=== PATIENT | female | born 1995 | race Caucasian/White ===

== ENCOUNTER 2019-12-13 14:03 | Emergency (ER) | payer MEDICAID, SELFPAY ==
[2019-12-13 14:07] VITALS: BP 136/92; PULSE 131; RESP 18; TEMP 36.7; O2SAT 99
--- NOTE | 2019-12-13 14:31 | W.ED.GENAD ---
Discharge Plan Disposition Patient Disposition: HOME Condition: Stable Discharge Details Chief Complaint: GenMedical Clinical Impression: Acute breast pain, Abnormal menstrual periods Primary Care Provider: April,Local ED Provider: Bruce Porter Home Meds and New Rx's Prescriptions: Continued methylphenidate HCl [Ritalin] 20 mg Tablet 20 mg PO BID RF: 0 buprenorphine-naloxone [Suboxone] 2-0.5 mg Film 2 film BUCCAL DAILY RF: 0 Discharge Instructions Instructions: Breast Self Exam for Women (ED) Additional Instructions: Please follow-up with women's wellness. Additional outpatient diagnostic testing is indicated. Please contact your primary care physician to arrange follow-up. Return to the ER for any worsening or new concerning symptoms. Referrals: [facility] [Provider Group] Discharge Data Discharge Date/Time-TO BE ENTERED AT DEPARTURE: 12/13/19 15:05 Medical Decision Making 24-year-old female on Suboxone and Ritalin here with bilateral breast pain over the past 1 to 2 months with firm tender breast mass noted on self-exam as well as irregular, infrequent menstruation. Patient is quite anxious. Breast exam was performed at the request of patient with female nurse Lashaun present. Patient does have some well circumscribed firm nodules that are tender. No overlying inflammatory changes. No current discharge from nipple although patient notes that she has had some. Urine test is negative. I called and spoke with Dr. Manuel, on-call shuttle preparation supervisor. I discussed ED presentation. She will see the patient in follow-up. No additional diagnostics requested at this time. Patient understands importance of timely follow-up with gynecology. I encouraged to return for any worsening or new concerning symptoms. Lab Data Lab results reviewed: Yes I reviewed the patient's lab results. Lab results narrative: Urine negative HPI General Mode of arrival: ambulatory. Date/Time Provider Initiated Documentation: 12/13/19 14:31. Limitations to Documentation: no limitations. Information obtained by: patient. HPI Narrative: 24-year-old female here with chief complaint of breast pain. Patient notes breasts are sore bilaterally over the past 1 to 2 months. Pain waxes and wanes and can be severe at times. Pain worse right breast compared to left. She notes she has associated firm tender masses bilateral breast. She also states she has had some discharge from her right nipple when she attempts to express it. Discharge is thick white. Patient denies rash. No fevers. Patient also states irregular menses for some time. She states that she had fairly regular periods when she was 19 and 20 and then over the past few years periods have been irregular and infrequent. She does not recall last period. No vaginal discharge. No abdominal pain. Of note, patient states she has not been seen by a shuttle preparation supervisor. She is sexually active. She does not use control. Related Data Home Medications Medication Instructions Recorded Confirmed buprenorphine-naloxone [Suboxone] 2 film BUCCAL DAILY 12/13/19 12/13/19 methylphenidate HCl [Ritalin] 20 mg PO BID 12/13/19 12/13/19 Allergies Allergy/AdvReac Type Severity Reaction Status Date / Time Penicillins Allergy Unknown as child Unverified 12/13/19 14:13 sulfamethoxazole Allergy Hives Unverified 12/13/19 14:14 [From Bactrim] trimethoprim [From Bactrim] Allergy Hives Unverified 12/13/19 14:14 General Stated Complaint: GenMedical MIS: 4 Review of Systems All systems reviewed & are unremarkable except as noted in HPI and below Gastrointestinal Gastrointestinal: Denies abdominal pain Genitourinary Genitourinary: Reports as per HPI and Denies pelvic pain PFS Social History Smoking/Tobacco Use Status: Current every day Tobacco Type: cigarettes Drug use: Daily Substance use type: marijuana Details: On Suboxone Do you feel safe at home: Yes Do you feel safe in your relationship?: Yes Exam Const General: healthy appearing and anxious Orientation: alert and awake HENMT Mouth: moist mucous membranes Eyes Sclera: normal sclerae Neck Neck: trachea midline and supple Chest Breast inspection: normal inspection of the axillae, abnormal inspection of the breast (rt breast nodule 1:00, tender. Left breast diffusely tender.) and Other (Breast exam was performed with female nurse joshua Wilks present) Breast palpation: no axillary lymphadenopathy Resp Auscultation: clear to auscultation bilaterally, no rales, no rhonchi and no wheezes Cardio Rhythm: regular rhythm GI Palpation: soft, not firm, no guarding, no masses, not rigid and nontender Skin General skin exam: no rashes or lesions noted Neuro General: patient alert, patient awake and tone normal Extrem General: no edema Psych Appearance: grossly normal Mental Status: mental status grossly normal Course Vital Signs Vital signs: Vital Signs Temperature 36.7 C 12/13/19 14:07 Pulse 131 H 12/13/19 14:07 Respiratory Rate 18 12/13/19 14:07 Blood Pressure 136/92 H 12/13/19 14:07 Pulse Oximetry 99 12/13/19 14:07 Temperature 36.7 C 12/13/19 14:07 Temperature Source Temporal Artery Scan 12/13/19 14:07 Pulse 131 H 12/13/19 14:07 Respiratory Rate 18 12/13/19 14:07 Respiratory Effort Non-Labored 12/13/19 14:11 Blood Pressure 136/92 H 12/13/19 14:07 Blood Pressure Position Sitting 12/13/19 14:07 Pulse Oximetry 99 12/13/19 14:07 Oxygen Delivery Method Room Air 12/13/19 14:07 Oxygen Flow Rate 0 12/13/19 14:07 Pain Level 5 12/13/19 14:07 Lab/Test Results Lab/Test Results: POC- Test(urine) Negative
[2019-12-13 19:03] VITALS: RESP 16
== END 2019-12-13 15:05 | disposition home or self-care (01) ==
LOC: ER 14:49
PROVIDERS: Emergency Provider Student in an Organized Health Care Education/Training Program
DX: R22.0 Localized swelling, mass and lump, head (principal); R22.31 Localized swelling, mass and lump, right upper limb; R22.32 Localized swelling, mass and lump, left upper limb
CPT/HCPCS: 81025; 99283

== ENCOUNTER 2019-12-15 14:44 | Emergency (ER) | payer MEDICAID, SELFPAY ==
[2019-12-15 14:50] VITALS: BP 117/70; PULSE 91; RESP 18; TEMP 36.7; O2SAT 96
--- NOTE | 2019-12-15 15:30 | ED.GENADUL_ITS ---
Discharge Plan Disposition Patient Disposition: HOME Condition: Stable Discharge Details Chief Complaint: GenMedical Clinical Impression: Facial swelling, Bilateral hand swelling Primary Care Provider: April,Local ED Provider: Daysi Max Home Meds and New Rx's Prescriptions: New prednisone 20 mg tablet 60 mg PO DAILY 5 Days Qty: 15 RF: 0 No Action methylphenidate HCl [Ritalin] 20 mg Tablet 20 mg PO BID RF: 0 buprenorphine-naloxone [Suboxone] 2-0.5 mg Film 2 film BUCCAL DAILY RF: 0 Discharge Instructions Instructions: Angioedema (ED) Additional Instructions: Follow up with PCP or [facility] in 3-5 days. Return to ED for any worsening or concerns. Take Benadryl 12 tablets every 6-8 hours as needed for swelling and itching. Take pepcid over the counter daily x 5 days. Take Prednisone as prescribed. Discharge Data Discharge Date/Time-TO BE ENTERED AT DEPARTURE: 12/15/19 16:13 Medical Decision Making 23-year-old female presents to the ER with bilateral hand and face swelling which began yesterday. She denies any pain or joint pain. She does take Suboxone and methylphenidate on a daily basis. No redness no new medications or exposure to anything. She denies any pruritus. Swelling to the face has since decreased and hand swelling has decreased she reports tingling and gaom-edj-rbymgnq type sensation to her hands. Denies any rash. She has no wheezing no trouble breathing no trouble swallowing. She did not take any medications prior to arrival. At this time swelling seems to be decreasing will order oral Benadryl, Pepcid and 60 mg of prednisone. Plan is to discharge patient with 5 days of prednisone and instructions to take [id number] Pepcid and Benadryl as needed for swelling. HPI General Mode of arrival: ambulatory . Date/Time Provider Initiated Documentation: 12/15/19 14:49 . Limitations to Documentation: no limitations . Information obtained by: patient . HPI Narrative: 23-year-old female presents to the ER with bilateral hand and face swelling which began yesterday. She denies any pain or joint pain. She does take Suboxone and methylphenidate on a daily basis. No redness no new medications or exposure to anything. She denies any pruritus. Swelling to the face has since decreased and hand swelling has decreased she reports tingling and vyeq-mla-wpsedpf type sensation to her hands. Denies any rash. She has no wheezing no trouble breathing no trouble swallowing. She did not take any medications prior to arrival. Related Data Home Medications Medication Instructions Recorded Confirmed buprenorphine-naloxone [Suboxone] 2 film BUCCAL DAILY 12/13/19 12/15/19 methylphenidate HCl [Ritalin] 20 mg PO BID 12/13/19 12/15/19 prednisone 60 mg PO DAILY 5 Days #15 tab 12/15/19 Previous Rx's Medication Instructions Recorded prednisone 60 mg PO DAILY 5 Days #15 tab 12/15/19 Allergies Allergy/AdvReac Type Severity Reaction Status Date / Time Penicillins Allergy Unknown as child Unverified 12/15/19 14:55 sulfamethoxazole Allergy Hives Unverified 12/15/19 14:55 [From Bactrim] trimethoprim [From Bactrim] Allergy Hives Unverified 12/15/19 14:55 General Stated Complaint: GenMedical MIS: 3 Review of Systems Narrative: Constitutional: Negative for weight loss, alert and oriented, well groomed, normal body habitus, appears comfortable. HEENT: Denies trauma, headaches, blurry vision, nasal discharge, sore throat, trouble swallowing. Chest: Denies chest pain, palpitations, irregular rhythm, hypertension. Respiratory: Denies Shortness of breath, cough, hemoptysis. GI: Denies abdominal pain, nausea, vomiting, diarrhea, constipation. : Denies dysuria, hematuria, flank pain, rectal bleeding. Neuro: Denies dizziness, blurry vision, weakness, syncope, headache or facial numbness. Hematologic: Denies easy bruising, intolerance to heat or cold, hair loss. [facility] Social History Smoking/Tobacco Use Status: Current every day Tobacco Type: cigarettes Alcohol Intake: current Alcohol Intake frequency: holidays/special occasions only Alcohol type: hard liquor Drug use: Daily Substance use type: marijuana Details: On Suboxone Do you feel safe at home: Yes Do you feel safe in your relationship?: Yes Exam Narrative Exam Narrative: Constitutional: Alert and oriented x3. Appears stated age. Normal body habitus. Head: Normocephalic, no trauma. Mild facial swelling noted. Eyes: Pupils PERRLA, Red reflex noted, EOM's intact. Eyelids symmetrical without lesions, discharge, or swelling. ENT: Bilateral TM's WNL, External ear normal to inspection, no mastoid TTP, swelling, or erythema, Nasal turbinates WNL, no nasal discharge. Normal dentition, Posterior pharynx WNL, no exudate. Chest: RRR, Normal S1, S2, distal pulses intact. Resp: Lungs clear to auscultation bilaterally, no wheezes, rales, or rhonchi. Musculoskeletal: Normal gait, 5/5 strength to all four extremities. Skin: No suspicious rashes or lesions. Capillary refill less than 2 sec. Neurologic: Cranial nerves II-XII intact. Alert and oriented x 3. DTR's intact. Hematologic/Lymphatic: No ecchymosis, no lymphadenopathy. Course Vital Signs Vital signs: Vital Signs Temperature 36.7 C 12/15/19 14:50 Pulse 91 H 12/15/19 14:50 Respiratory Rate 18 12/15/19 14:50 Blood Pressure 117/70 12/15/19 14:50 Pulse Oximetry 96 12/15/19 14:50 Temperature 36.7 C 12/15/19 14:50 Temperature Source Temporal Artery Scan 12/15/19 14:50 Pulse 91 H 12/15/19 14:50 Respiratory Rate 18 12/15/19 14:50 Respiratory Effort Non-Labored 12/15/19 14:56 Blood Pressure 117/70 12/15/19 14:50 Pulse Oximetry 96 12/15/19 14:50 Oxygen Delivery Method Room Air 12/15/19 14:50 Oxygen Flow Rate 0 12/15/19 14:50
[2019-12-15] MEDS: Famotidine 20 MG TAB 40 MG PO (15:42)
[2019-12-15] MEDS: diphenhydrAMINE 25 MG CAP PO (15:42)
[2019-12-15] MEDS: predniSONE 20 MG TAB 60 MG PO (15:42)
== END 2019-12-15 16:13 | disposition home or self-care (01) ==
PROVIDERS: Emergency Provider Registered Nurse Emergency
DX: R22.0 Localized swelling, mass and lump, head (principal); M79.89 Other specified soft tissue disorders
CPT/HCPCS: 99283; J7512

== ENCOUNTER 2019-12-22 16:48 | Emergency (ER) | payer MEDICAID, SELFPAY ==
[2019-12-22 16:56] VITALS: BP 108/58; PULSE 75; RESP 16; TEMP 36.7; O2SAT 98
--- NOTE | 2019-12-22 17:03 | ED.GENADUL_ITS ---
Discharge Plan Disposition Patient Disposition: HOME Condition: Stable Discharge Details Clinical Impression: Otitis externa, Acute effusion of right ear Primary Care Provider: April,Local ED Provider: Mee Aj Home Meds and New Rx's Prescriptions: New azithromycin [Zithromax Z-Iggy] 250 mg tablet See Rx Instructions .ROUTE .COMPLEX Qty: 6 RF: 0 Cipro HC 0.2-1 % drops,suspension 3 drp OT BID 7 Days Qty: 10 RF: 0 Continued ibuprofen 600 mg tablet 600 mg PO Q6H PRN (Reason: pain) Qty: 30 RF: 2 methylphenidate HCl [Ritalin] 20 mg Tablet 20 mg PO BID RF: 0 buprenorphine-naloxone [Suboxone] 2-0.5 mg Film 2 film BUCCAL DAILY RF: 0 Discharge Instructions Instructions: Otitis Externa (ED), Ear Infection (ED) Additional Instructions: Drink plenty of fluids and get plenty of rest. Alternate tylenol and motrin as needed and directed for pain. Use the eardrops as directed until finished. If you have no relief of symptoms in the next 2 days, start the oral antibiotics. Follow-up with your primary care doctor in 1 week. Follow-up with the ear nose and throat doctor if your symptoms do not improve or worsen over the next few weeks. Return to the emergency department with any worsening or new concerning symptoms. Referrals: Flip Cohen MD [ [facility]] - Discharge Data Discharge Date/Time-TO BE ENTERED AT DEPARTURE: 12/22/19 17:37 Discharge Physician: Mee Aj Medical Decision Making 24-year-old female presents with right ear pain and clear drainage for the past few days. Vitals within normal limits. She appears nontoxic. Pain with pulling on right ear and when introducing otoscope into right ear canal which noted minimal edema and erythema. There is a small piece of wax obstructing full view of TM.. TM appears dull without significant erythema. Suspect most likely otitis externa. Will treat with Cipro HC otic drops. We will also give a prescription for oral Zithromax if symptoms do not improve or worsen over the next 2 days. Urine test negative last week. On suboxone and ritalin. Advised to follow up with the primary care doctor for re-evaluation and for referral to ENT if symptoms do not improve or worsen. Usual and customary return precautions given prior to discharge. Medical Records Medical records reviewed: Yes I reviewed the patient's medical records. HPI General Mode of arrival: ambulatory . Date/Time Provider Initiated Documentation: 12/22/19 16:48 . Limitations to Documentation: no limitations . Information obtained by: patient . HPI Narrative: Patient is a 24-year-old female who presents with right ear pain and clear drainage over the past few days. She states the pain feels like it is deep within her ear but also hurts with pulling on her ear. She denies any fever, sore throat, cough, neck pain or headache. She denies any recent swimming. Related Data Home Medications Medication Instructions Recorded Confirmed buprenorphine-naloxone [Suboxone] 2 film BUCCAL DAILY 12/13/19 12/22/19 methylphenidate HCl [Ritalin] 20 mg PO BID 12/13/19 12/22/19 ibuprofen 600 mg tablet 600 mg PO Q6H PRN #30 tab 12/17/19 12/22/19 azithromycin [Zithromax Z-Iggy] See Rx Instructions .ROUTE 12/22/19 .COMPLEX #6 tab ciprofloxacin-hydrocortisone 3 drp OT BID 7 Days #10 ml 12/22/19 [Cipro HC] Previous Rx's Medication Instructions Recorded ibuprofen 600 mg tablet 600 mg PO Q6H PRN #30 tab 12/17/19 azithromycin [Zithromax Z-Iggy] See Rx Instructions .ROUTE 12/22/19 .COMPLEX #6 tab ciprofloxacin-hydrocortisone 3 drp OT BID 7 Days #10 ml 12/22/19 [Cipro HC] Allergies Allergy/AdvReac Type Severity Reaction Status Date / Time Penicillins Allergy Unknown as child Unverified 12/22/19 16:59 sulfamethoxazole Allergy Hives Unverified 12/22/19 16:59 [From Bactrim] trimethoprim [From Bactrim] Allergy Hives Unverified 12/22/19 16:59 General Stated Complaint: EarProblem MIS: 4 Review of Systems All systems reviewed & are unremarkable except as noted in HPI and below Constitutional Constitutional: Reports as per HPI, Denies chills and Denies fever(s) Eyes Eyes: Denies blurry vision ENT Ears, Nose, Mouth, and Throat: Denies dizziness, Reports ear discharge, Reports otalgia, Denies sore throat and Denies throat swelling Cardiovascular Cardiovascular: Denies chest pain and Denies dyspnea Respiratory Respiratory: Denies cough and Denies dyspnea Gastrointestinal Gastrointestinal: Denies abdominal pain, Denies diarrhea and Denies vomiting Genitourinary Genitourinary: Denies hematuria and Denies dysuria Musculoskeletal Musculoskeletal: Denies back pain and Denies numbness Integumentary/Breasts Skin/Breast: Denies lesions and Denies rash Neurologic Neurologic: Denies dizziness, Denies localized weakness and Denies numbness Allergic/Immunologic Allergic/Immunologic: Denies throat swelling PFSH Medical History (Updated 12/22/19 @ 17:29 by Mee Aj DO) Mastalgia Social History Smoking/Tobacco Use Status: Current every day Tobacco Type: cigarettes Alcohol Intake: current Alcohol Intake frequency: holidays/special occasions only Alcohol type: hard liquor Drug use: Daily Substance use type: marijuana Details: On Suboxone Do you feel safe at home: Yes Do you feel safe in your relationship?: Yes Exam Const General: cooperative, healthy appearing and no acute distress HENMT Head: normal to inspection Ears: hearing grossly normal bilaterally, mastoids normal bilaterally nontender, EAC abnormal cerumen impaction on the right (Small piece of dried wax superior aspect obstructing superior aspect of TM), erythema on the right (Minimal), edema on the right (Minimal) and EAC tenderness on the right (When introducing otoscope); no foreign body and no otic discharge, external ear abnormal pain with movement of external ear on the right and TM abnormal dull on the right and obstructed by cerumen on the right (on superior aspect with dried yellow wax) General nose exam: external nose normal Face and sinus: normal facial exam Mouth: oral mucosae normal Throat: posterior oropharynx normal Eyes General: appearance normal, both eyes and all related structures Neck Neck: normal visual inspection, full ROM, no lymphadenopathy, no meningeal signs, trachea midline and supple Resp Effort & Inspection: normal respiratory effort and able to speak in complete sen tences Cardio Rate: regular rate Skin General skin exam: no rashes or lesions noted Neuro General: patient alert, patient awake and patient oriented x3 Motor: muscle tone normal throughout Extrem General: normal to inspection and full ROM Psych Appearance: grossly normal Affect: normal affect Course Vital Signs Vital signs: Vital Signs Temperature 98.1 F 12/22/19 16:56 Pulse 75 12/22/19 16:56 Respiratory Rate 16 12/22/19 16:56 Blood Pressure 108/58 L 12/22/19 16:56 Pulse Oximetry 98 12/22/19 16:56 Temperature 98.1 F 12/22/19 16:56 Temperature Source Skin 12/22/19 16:56 Pulse 75 12/22/19 16:56 Respiratory Rate 16 12/22/19 16:56 Respiratory Effort Non-Labored 12/22/19 16:56 Blood Pressure 108/58 L 12/22/19 16:56 Blood Pressure Position Sitting 12/22/19 16:56 Pulse Oximetry 98 12/22/19 16:56 Oxygen Delivery Method Room Air 12/22/19 16:56 Oxygen Flow Rate 0 12/22/19 16:56 Pain Level 5 12/22/19 16:57
== END 2019-12-22 17:37 | disposition home or self-care (01) ==
PROVIDERS: Emergency Provider Physician Assistant
DX: H60.501 Unspecified acute noninfective otitis externa, right ear (principal); H65.191 Other acute nonsuppurative otitis media, right ear
CPT/HCPCS: 99283

== ENCOUNTER 2019-12-23 03:45 | Outpatient (CLI) | payer MEDICAID, SELFPAY ==
[2019-12-23 16:49] LABS: HCG Quant, Pregnancy 889 mIU/mL (1-3); TSH (W/Ref FT4) 0.64 uIU/mL (0.36-3.74)
[2019-12-23 22:19] LABS: Prolactin 7.8 ng/mL (See Table)
== END 2019-12-23 04:05 ==
PROVIDERS: Visit Provider Obstetrics & Gynecology Gynecology
DX: N64.4 Mastodynia (principal); N92.6 Irregular menstruation, unspecified
CPT/HCPCS: 36415; 84146; 84443; 84702

== ENCOUNTER 2020-01-21 14:32 | Outpatient (REF) | payer MEDICAID, SELFPAY ==
[2020-01-24 02:59] LABS: Patient Race White; SARS-CoV-2 RNA Undetected (Undetected); SARS-CoV-2 Specimen Source Nasal
== END 2020-01-21 14:52 ==
LOC: LBN 14:32
PROVIDERS: Visit Provider Nurse Practitioner Adult Health
DX: Z11.59 Encounter for screening for other viral diseases (principal)
CPT/HCPCS: U0003

== ENCOUNTER 2020-02-04 15:48 | Emergency (ER) | payer MEDICAID, SELFPAY ==
[2020-02-04 15:55] VITALS: BP 122/72; PULSE 95; RESP 18; TEMP 37; O2SAT 97
--- NOTE | 2020-02-04 16:12 | W.ED.GENAD ---
Discharge Plan Disposition Patient Disposition: HOME Condition: Stable Discharge Details Clinical Impression: Sinusitis Primary Care Provider: Love Golden ED Provider: Jhon Toribio Home Meds and New Rx's Prescriptions: Continued ibuprofen 600 mg tablet 600 mg PO Q6H PRN (Reason: pain) Qty: 30 RF: 2 prenat.vits,thao,tqa-cktg-qomsl Tablet 1 tab PO DAILY Qty: 90 RF: 5 methylphenidate HCl [Ritalin] 20 mg Tablet 20 mg PO BID RF: 0 buprenorphine-naloxone [Suboxone] 2-0.5 mg Film 2 film BUCCAL DAILY RF: 0 Discharge Instructions Instructions: Sinusitis (ED) Additional Instructions: you should not be at work until you go 24 hours without a cough or fever follow up with your primary care provider within 1 week if symptoms continue if you feel more ill, have difficulty breathing return to the emergency department Stand Alone Forms: Work Release Medical Decision Making 24 yo female recently diagnosed with selam in August per patient comes in with cc of sinus congestion, dry cough for 4 days. Denies fevers, dyspnea, had a negative covid1 test at work but was on 01/23 before she was symptomatic. She arrives hd stable and appears well systemically speaking in full sentences. Has clear rhinorrhea, clear lung sounds, no abdominal tenderness, no murmurs. Suspect she has viral uri vs sinusitis but will retest for covid19. Stable vitals and normal lung sounds so doubt pna and do not feel xray indicated and has no fevers and appears well systemcially so doubt sepsis and do not feel lab work indicated. Will have her try netti pot and advised f/u with pcp, return precautions given Differential Diagnosis Differential Diagnosis: sinusitis, uri, covid19 HPI General Mode of arrival: ambulatory. Date/Time Provider Initiated Documentation: 02/04/20 15:50. Limitations to Documentation: no limitations. Information obtained by: patient. History of Present Illness 24 year old F presents to the emergency department with the chief complaint of sinus congestion, described as moderate, and it has been constant. No relieving factors improve symptom(s), No exacerbating factors reported . Patient notes no other symptoms.. Related Data Home Medications Medication Instructions Recorded Confirmed buprenorphine-naloxone [Suboxone] 2 film BUCCAL DAILY 12/13/19 12/22/19 methylphenidate HCl [Ritalin] 20 mg PO BID 12/13/19 12/22/19 ibuprofen 600 mg tablet 600 mg PO Q6H PRN #30 tab 12/17/19 12/22/19 prenat.vits,thao,xjj-elxu-lfkxq 1 tab PO DAILY #90 tab 12/25/19 Previous Rx's Medication Instructions Recorded ibuprofen 600 mg tablet 600 mg PO Q6H PRN #30 tab 12/17/19 prenat.vits,thao,kdy-uego-aerqa 1 tab PO DAILY #90 tab 12/25/19 Allergies Allergy/AdvReac Type Severity Reaction Status Date / Time Penicillins Allergy Unknown as child Unverified 02/04/20 16:01 sulfamethoxazole Allergy Hives Unverified 02/04/20 16:01 [From Bactrim] trimethoprim [From Bactrim] Allergy Hives Unverified 02/04/20 16:01 General Stated Complaint: RespSymp MIS: 4 Review of Systems All systems reviewed & are unremarkable except as noted in HPI and below Constitutional Constitutional: Denies chills, Denies fever(s) and Denies weakness Cardiovascular Cardiovascular: Denies chest pain and Denies dyspnea Respiratory Respiratory: Denies dyspnea Gastrointestinal Gastrointestinal: Denies abdominal pain, Denies nausea and Denies vomiting Musculoskeletal Musculoskeletal: Denies joint swelling Neurologic Neurologic: Denies weakness Psychiatric Psychiatric: Denies depression [facility] Medical History (Updated 02/04/20 @ 16:13 by Jhon Toribio MD) Mastalgia Suboxone maintenance treatment complicating , antepartum 4 mg/day. [facility] since 04/2019. Social History (Updated 12/31/19 @ 16:34 by Blank Manuel MD) Smoking/Tobacco Use Status: Current every day Tobacco Type: cigarettes Smoking risk assessment performed?: Yes Alcohol Intake: current Alcohol Intake frequency: holidays/special occasions only Alcohol type: hard liquor Drug use: Daily Substance use type: marijuana Details: On Suboxone Household members: significant other and other Details: Rudolph Number of Children: 0 Do you feel safe at home: Yes Do you feel safe in your relationship?: Yes History History 1 Para 0 Hx # Term Pregnancies Multiple births Hx # Pregnancies Ectopic pregnancies AB induced Hx Number of Living Children AB spontaneous Exam Const General: no acute distress Orientation: alert HENMT Head: normal to inspection Ears: external ears normal General nose exam: external nose normal Mouth: moist mucous membranes Eyes General: appearance normal, both eyes and all related structures Neck Neck: normal visual inspection Resp Effort & Inspection: normal respiratory effort and able to speak in complete sentences Cardio Rate: regular rate Skin General skin exam: no rashes or lesions noted Neuro General: patient alert and patient oriented x3 Extrem General: normal to inspection Psych Mental Status: mental status grossly normal Course Vital Signs Vital signs: Vital Signs Temperature 37 C 02/04/20 15:55 Pulse 95 H 02/04/20 15:55 Respiratory Rate 18 02/04/20 15:55 Blood Pressure 122/72 02/04/20 15:55 Pulse Oximetry 97 02/04/20 15:55 Temperature 37 C 02/04/20 15:55 Temperature Source Temporal Artery Scan 02/04/20 15:55 Pulse 95 H 02/04/20 15:55 Respiratory Rate 18 02/04/20 15:55 Respiratory Effort 02/04/20 16:04 Blood Pressure 122/72 02/04/20 15:55 Blood Pressure Position Sitting 02/04/20 15:55 Pulse Oximetry 97 02/04/20 15:55 Oxygen Delivery Method Room Air 02/04/20 15:55 Oxygen Flow Rate 0 02/04/20 15:55
[2020-02-08 17:50] LABS: Patient Race White; SARS-CoV-2 RNA Undetected (Undetected); SARS-CoV-2 Specimen Source Nasopharynx
--- NOTE | 2020-02-09 08:11 | NUR.NOTE ---
02/09/20 @ 0810 lEFT MESSAGE FOR PATIENT TO RETURN CALL TO ED RE TEST RESULTS.
== END 2020-02-04 16:25 | disposition home or self-care (01) ==
PROVIDERS: Emergency Provider Emergency Medicine; PCP Physician Assistant Medical
DX: O99.511 Diseases of the respiratory system complicating pregnancy, first trimester (principal); J01.90 Acute sinusitis, unspecified; Z11.59 Encounter for screening for other viral diseases
CPT/HCPCS: 99281; U0003

== ENCOUNTER 2020-02-05 02:25 | Outpatient (CLI) | payer MEDICAID, SELFPAY ==
[2020-02-05 15:29] LABS: Abs Immature Grans 0.04 10^3/uL (0.0-0.06); Absolute Basophil Count 0.02 10^3/uL (0.0-0.2); Absolute Eosinophil Count 0.05 10^3/uL (0.0-0.7); Absolute Lymphocyte Count 2.27 10^3/uL (1.2-3.4); Absolute Monocyte Count 0.68 10^3/uL (0.1-0.8); Absolute Neutrophil Count 6.58 10^3/uL (1.2-6.7); Basophils % 0.2; Eosinophils % 0.5; HCT 38.4 % (36.0-46.0); HGB 13.1 g/dL (11.2-15.7); Immature Grans % 0.4; Lymphocytes % 23.5; MCH 30.4 pg (27.0-33.0); MCHC 34.1 % (32.0-36.0); MCV 89.1 fL (80-95); MPV 10.1 fL (8.0-11.0); Monocytes % 7.1; Neutrophils % 68.3; Nucleated RBC 0 %; Platelet Count 200 10^3/uL (130-400); RBC 4.31 10^6/uL (3.93-5.22); RDW 12.1 % (11.7-14.6); RDW-SD 40.2 fL; WBC 9.64 10^3/uL (4.4-10.8)
[2020-02-07 16:05] LABS: Syphilis Total Ab w/Reflex Equivocal (Nonreactive)
[2020-02-09 11:22] LABS: RPR Screen w/Reflex Nonreactive (Nonreactive)
[2020-02-09 15:46] LABS: Syphilis Ab, TP-PA Negative (Negative)
[2020-02-11 09:44] LABS: HIV-1/2 Ag & Ab Screen Negative (Negative)
[2020-02-11 09:46] LABS: Hepatitis B Surface Ag Negative (Negative); Hepatitis C Ab w Rflx HCV PCR Negative (Negative)
[2020-07-01 11:29] LABS: Rubella IgG Ab (UVM) Positive
[2020-07-01 11:30] LABS: Varicella IgG Antibody Positive
== END 2020-02-05 02:45 ==
PROVIDERS: PCP Physician Assistant Medical; Visit Provider Advanced Practice Midwife
DX: Z34.91 Encounter for supervision of normal pregnancy, unspecified, first trimester (principal); Z11.4 Encounter for screening for human immunodeficiency virus [HIV]; Z11.59 Encounter for screening for other viral diseases; Z01.84 Encounter for antibody response examination
CPT/HCPCS: 0064U; 36415; 86780; 86787; 86803; 86850; 86900; 86901; 87340; 87389; 84443; 85025; 86762

== ENCOUNTER 2020-02-05 17:19 | Outpatient (REF) | payer MEDICAID, SELFPAY ==
--- NOTE | 2020-02-05 14:45 | PAPFT_PTH ---
PATIENT: Genia Joe LOC: [facility] U#:[id number] AGE/SX: 24/F ROOM: RE02/05/[address]: Alen Whiting RN : 1995 BED: DIS: 02/05/2020 SPEC #: [id number] RECD: 02/05/20 17:56 STATUS: CANDY REQ #: [id number] JALIL: 02/05/20 14:[address]: Alen Whiting DEPT: [facility] Cytology RECD BY: Elle Suazo ENTERED: 02/05/20 17:57 SP TYPE: PAPFT OTHR DR: Love Golden Tissues: 1 - CX/ENDOCX FOR PAP SMEARS Procedures: PAP THIN PREP/[facility]VM Screening Comments: [id number] ([facility])
[2020-02-05 20:54] LABS: *AMPHETAMINES SCREEN URINE Negative (Negative); *BARBITURATES SCREEN URINE Negative (Negative); *BENZODIAZEPINES SCREEN URINE Negative (Negative); Cannabinoids THC POSITIVE (Negative); Cocaine Screen,Urine Negative (Negative); METHADONE URINE SCREEN Negative (Negative); OPIATES URINE SCREEN Negative (Negative)
[2020-02-05 21:13] LABS: Tricyclic Antidepressants Negative (Negative)
[2020-02-10 12:36] LABS: Buprenorphine 93.8 ng/mL; Norbuprenorphine 76.1 ng/mL
[2020-02-11 12:22] LABS: Chlamydia Result Negative (Negative); GC Result Negative (Negative)
== END 2020-02-05 17:39 ==
LOC: LBN 17:19
PROVIDERS: PCP Physician Assistant Medical; Visit Provider Advanced Practice Midwife
DX: Z12.4 Encounter for screening for malignant neoplasm of cervix (principal); Z34.91 Encounter for supervision of normal pregnancy, unspecified, first trimester
CPT/HCPCS: 80307; 87491; 87591; 88142; 87086

== ENCOUNTER 2020-02-19 13:01 | Outpatient (REF) | payer MEDICAID, SELFPAY ==
[2020-02-19 15:41] LABS: *AMPHETAMINES SCREEN URINE Negative (Negative); *BARBITURATES SCREEN URINE Negative (Negative); *BENZODIAZEPINES SCREEN URINE Negative (Negative); Cannabinoids THC POSITIVE (Negative); Cocaine Screen,Urine Negative (Negative); METHADONE URINE SCREEN Negative (Negative); OPIATES URINE SCREEN Negative (Negative)
[2020-02-19 15:50] LABS: Tricyclic Antidepressants Negative (Negative)
[2020-02-21 11:52] LABS: Buprenorphine 74.1 ng/mL; Norbuprenorphine 80.1 ng/mL
== END 2020-02-19 13:21 ==
LOC: LBN 13:01
PROVIDERS: PCP Physician Assistant Medical; Visit Provider Advanced Practice Midwife
DX: Z34.91 Encounter for supervision of normal pregnancy, unspecified, first trimester (principal)
CPT/HCPCS: 80307

== ENCOUNTER 2020-02-26 02:29 | Outpatient (CLI) | payer MEDICAID, SELFPAY ==
[2020-02-26 14:26] LABS: Kit/Specimen SENT
[2020-03-02 17:52] LABS: Result Summary NEGATIVE; Specimen WB Whole Blood
== END 2020-02-26 02:49 ==
PROVIDERS: PCP Physician Assistant Medical; Visit Provider Advanced Practice Midwife
DX: Z34.91 Encounter for supervision of normal pregnancy, unspecified, first trimester (principal); Z36.89 Encounter for other specified antenatal screening
CPT/HCPCS: 36415; 81220

== ENCOUNTER 2020-04-15 01:33 | Outpatient (CLI) | payer MEDICAID, SELFPAY ==
--- NOTE | 2020-04-15 | DI.US_ITS ---
EXAM: US OB 2-3 TRIMESTER CLINICAL HISTORY: Z34.90,ROUTINE CARE. TECHNIQUE: Transabdominal obstetrical ultrasound was performed. COMPARISON: No exams were available for comparison FINDINGS: There is a single viable intrauterine gestation with cardiac activity identified-144 bpm. Amniotic fluid: There is a normal amount of amniotic fluid. Placental location: The placenta is posterior grade 1,low-lying with the inferior tip of the placenta covering the internal cervical os. Cervical length is 5.5 centimetres. ANATOMY: A 3 vessel umbilical cord is seen. A four-chamber cardiac view was obtained. Right and left ventricular outflow tracts were imaged. There are no obvious abnormalities of the spinal column evident. There is no obvious abnormal ity of the anterior abdominal wall. stomach and urinary bladder are identified and there is no evidence of hydronephrosis. No abnormalities of the upper lip region are identified. No evidence of choroid plexus cysts i n the brain. Dating parameters place this at approximately 20 weeks and 3 days gestational age. BPD measures 19 weeks and 4 days HC measures 20 weeks and 2 days AC measures 21 weeks and 3 days FL measures 20 weeks and 1 day Estimated weight is 375 gm-0 pounds 13 ounces Fetus is at the 39th percentile on the Hadlock scale. IMPRESSION:: Single viable intrauterine gestation which is approximately 20 weeks and 3 days gestati onal age, implying an SCOTT of August 30, 2020. There are no obvious anomalies evident on today's study. The posterior placenta is completely covering the internal cervical os consistent with complete place nta previa. Cervical canal is closed and cervical length is 5.5 centimetres. There is normal amount of amniotic fluid. . DATA REPOSITORY: 0 pounds 13 ounces
== END 2020-04-15 01:53 ==
PROVIDERS: PCP Physician Assistant Medical; Visit Provider Advanced Practice Midwife
DX: Z34.92 Encounter for supervision of normal pregnancy, unspecified, second trimester (principal)
CPT/HCPCS: 76805

== ENCOUNTER 2020-06-11 02:38 | Outpatient (CLI) | payer MEDICAID, SELFPAY ==
[2020-06-11 15:40] LABS: HCT 35.7 % (36.0-46.0); MCH 31.4 pg (27.0-33.0); MCHC 33.6 % (32.0-36.0); MCV 93.5 fL (80-95); MPV 9.4 fL (8.0-11.0); Platelet Count 214 10^3/uL (130-400); RBC 3.82 10^6/uL (3.93-5.22); RDW-SD 44.4 fL; WBC 11.05 10^3/uL (4.4-10.8)
[2020-06-11 16:05] LABS: Glucose,1 Hr (Glucola) 92 mg/dL (80-140)
[2020-06-11 18:57] LABS: *AMPHETAMINES SCREEN URINE POSITIVE (Negative); *BARBITURATES SCREEN URINE Negative (Negative); *BENZODIAZEPINES SCREEN URINE Negative (Negative); Cannabinoids THC POSITIVE (Negative); Cocaine Screen,Urine Negative (Negative); METHADONE URINE SCREEN Negative (Negative); OPIATES URINE SCREEN Negative (Negative)
[2020-06-11 19:06] LABS: Tricyclic Antidepressants Negative (Negative)
[2020-06-14 11:10] LABS: Varicella IgG Antibody Positive (See Note)
[2020-06-14 11:15] LABS: Rubella IgG Ab (UVM) Positive (See Note)
[2020-06-16 10:20] LABS: Buprenorphine 691.5 ng/mL (Cutoff: 5.0); Norbuprenorphine 804.8 ng/mL (Cutoff: 2.5)
== END 2020-06-11 02:39 | disposition home or self-care (01) ==
LOC: LBO 02:38
PROVIDERS: Advanced Practice Midwife; PCP Physician Assistant Medical; Visit Provider Advanced Practice Midwife
DX: O99.323 Drug use complicating pregnancy, third trimester; F12.90 Cannabis use, unspecified, uncomplicated
CPT/HCPCS: 36415; 80307; 82950; 85027; 86787; 86850; 90384; 86762

== ENCOUNTER 2020-06-11 04:07 | Outpatient (CLI) | payer MEDICAID, SELFPAY ==
--- NOTE | 2020-06-11 08:00 | DI.US_ITS ---
EXAM: US OB F/U FACIAL/LVOT/RVOT CLINICAL HISTORY: F/U PLACENTA PREVIA,O44.0. TECHNIQUE: Transabdominal obstetrical ultrasound performed. COMPARISON: US US OB 2-3 TRIMESTER from 04/15/2020 FINDINGS: Transabdominal obstetrical ultrasound performed. FINDINGS: Number of fetuses: One. position: Cephalic. Placental location: Posterior. There is no evidence of a placenta previa. The placental tip is 2.1 c m from the internal os on the transvaginal images. Heart Rate: 130BPM Amniotic fluid index: Visually, amount of fluid is within normal limits. IMPRESSION: 1. Single live intrauterine gestation as above. 2. No evidence of placenta previa. The placenta is posterior. The placental tip is located 2.1 cm f rom the internal os on the transvaginal images. DATA REPOSITORY:
== END 2020-06-11 04:27 ==
PROVIDERS: PCP Physician Assistant Medical; Visit Provider Advanced Practice Midwife
DX: Z87.59 Personal history of other complications of pregnancy, childbirth and the puerperium (principal)
CPT/HCPCS: 76815

== ENCOUNTER 2020-07-12 17:03 | Outpatient (REF) | payer MEDICAID, SELFPAY ==
[2020-07-12 18:35] LABS: *AMPHETAMINES SCREEN URINE Negative (Negative); *BARBITURATES SCREEN URINE Negative (Negative); *BENZODIAZEPINES SCREEN URINE Negative (Negative); Cannabinoids THC Positive (Negative); Cocaine Screen,Urine Negative (Negative); METHADONE URINE SCREEN Negative (Negative); OPIATES URINE SCREEN Negative (Negative)
[2020-07-12 18:44] LABS: Tricyclic Antidepressants Negative (Negative)
[2020-07-16 12:58] LABS: Buprenorphine 990.4 ng/mL (Cutoff: 5.0); Norbuprenorphine 1209.2 ng/mL (Cutoff: 2.5)
[2020-07-17 09:23] LABS: Methylphenidate >2000 ng/mL; Ritalinic Acid >10000 ng/mL
== END 2020-07-12 17:04 | disposition home or self-care (01) ==
LOC: NCHCN 17:03
PROVIDERS: PCP Physician Assistant Medical; Visit Provider Advanced Practice Midwife
DX: O99.323 Drug use complicating pregnancy, third trimester (principal); F11.20 Opioid dependence, uncomplicated; Z3A.33 33 weeks gestation of pregnancy
CPT/HCPCS: 80307; 80360

== ENCOUNTER 2020-07-22 17:49 | Outpatient (REF) | payer MEDICAID, SELFPAY ==
[2020-07-22 20:01] LABS: *AMPHETAMINES SCREEN URINE Negative (Negative); *BARBITURATES SCREEN URINE Negative (Negative); *BENZODIAZEPINES SCREEN URINE Negative (Negative); Cannabinoids THC Positive (Negative); Cocaine Screen,Urine Negative (Negative); METHADONE URINE SCREEN Negative (Negative); OPIATES URINE SCREEN Negative (Negative)
[2020-07-22 20:03] LABS: Tricyclic Antidepressants Negative (Negative)
[2020-07-27 10:44] LABS: Methylphenidate NEGATIVE; Ritalinic Acid NEGATIVE
[2020-07-29 08:39] LABS: Buprenorphine 425.8 ng/mL (Cutoff: 5.0)
== END 2020-07-22 17:50 | disposition home or self-care (01) ==
LOC: LBN 17:49
PROVIDERS: PCP Physician Assistant Medical; Visit Provider Advanced Practice Midwife
DX: O99.323 Drug use complicating pregnancy, third trimester (principal); Z3A.33 33 weeks gestation of pregnancy; F11.20 Opioid dependence, uncomplicated
CPT/HCPCS: 80307; 80360

== ENCOUNTER 2020-08-06 14:01 | Outpatient (CLI) | payer MEDICAID, SELFPAY | END 2020-08-06 14:02 | disposition home or self-care (01) | LOC: BCD 14:04 | PROVIDERS: PCP Physician Assistant Medical; Visit Provider Advanced Practice Midwife | DX: Z53.9 Procedure and treatment not carried out, unspecified reason (principal) ==

== ENCOUNTER 2020-08-10 13:04 | Outpatient (CLI) | payer MEDICAID, SELFPAY ==
--- NOTE | 2020-08-10 | DI.US_ITS ---
Exam(s) US OB CRAIG WEIGHT EXAM: US OB CRAIG WEIGHT CLINICAL HISTORY: substance abuse in MAT, size less than dates. TECHNIQUE: Transabdominal obstetrical ultrasound performed. COMPARISON: US US OB F/U FACIAL/LVOT/RVOT from 06/11/2020 FINDINGS: Transabdominal obstetrical ultrasound performed. FINDINGS: Number of fetuses: One. position: Cephalic. Placental location: Posterior and fundal. Placental grade 2. no evidence of previa. The placental tip is over 10 cm from the internal os. BIOMETRIC DATA: BPD: 89 mm = 36 weeks HC: 321 mm = 36 weeks 2 days AC: 332 mm = 37 weeks 1 day FL: 64 mm = 33 weeks 1 day (less than the 1st percentile.) EFW: 2805 grms 20th percentile% Composite Age: 35 weeks 5 days EDC: 09/09/2020 Heart Rate: 141BPM Amniotic fluid index: 14.2 cm. Visually, amount of fluid is within normal limits. IMPRESSION: 1. Single live intrauterine gestation as above. 2. Estimated weight is 2805gms. This is the 20th percentile. 3. Amniotic fluid index is 14.2 cm. Visually within normal limits. DATA REPOSITORY:
[2020-08-10 16:06] VITALS: BP 115/68; PULSE 72; TEMP 36.8
[2020-08-10 16:13] VITALS: BP 115/68; PULSE 72
--- NOTE | 2020-08-10 16:44 | W.OBNST ---
Date of service: 08/10/20 Time of Service: 16:44 NST Evaluation Reason for NST Reasons for Nonstress Test: SUBSTANCE ABUSE IN MAT Gestational Age Gestational Age in Weeks and Days: 37 Weeks and 4Days Test and Monitor Explained Test/Monitor Explained: Test Explained, Monitor Explained and Patient Verbalized Understanding Vital Signs Blood Pressure: 115/68 Pulse: 72 Temperature: 98.2 F NST Information Date on Monitor: 08/10/20 Time on Monitor: 16:10 Date off Monitor: 08/10/20 Time off Monitor: 16:31 Total Time on Monitor: 21 NST Interventions: None NST Evaluation Patient States Movement: Present FHR Baseline: 115 Variability: Moderate 6-25 bpm Accelerations: 15x15 Decelerations: None NST Results: Reactive Note NST Note Note: Genia presented for scheduled NST which she will be doing twice weekly due to Substance abuse MAT. Had US for growth and CRAIG prior to NST which demonstrates CRAIG 14.2, growth 20%, EFW 6lb2oz. Cephalic. NST is reactive and reassuring. Discharged home in satisfactory condition. Will return in 3 days for NST. NST Reviewed and Verified by: Melita Harmon
[2020-08-10 16:46] VITALS: BP 115/68; PULSE 72; TEMP 36.8
== END 2020-08-10 16:50 | disposition home or self-care (01) ==
LOC: BCD 13:06 → OBS 16:05
PROVIDERS: PCP Physician Assistant Medical; Referring Provider Advanced Practice Midwife; Visit Provider Advanced Practice Midwife
DX: O99.323 Drug use complicating pregnancy, third trimester (principal); F11.10 Opioid abuse, uncomplicated; Z3A.37 37 weeks gestation of pregnancy
CPT/HCPCS: 59025; 76816

== ENCOUNTER 2020-08-10 17:24 | Outpatient (REF) | payer MEDICAID, SELFPAY ==
[2020-08-10 19:51] LABS: *AMPHETAMINES SCREEN URINE Negative (Negative); *BARBITURATES SCREEN URINE Negative (Negative); *BENZODIAZEPINES SCREEN URINE Negative (Negative); Cannabinoids THC Positive (Negative); Cocaine Screen,Urine Negative (Negative); METHADONE URINE SCREEN Negative (Negative); OPIATES URINE SCREEN Negative (Negative); Tricyclic Antidepressants Negative (Negative)
[2020-08-16 00:50] LABS: Methylphenidate NEGATIVE; Ritalinic Acid NEGATIVE
[2020-08-17 15:20] LABS: Buprenorphine 41.7 ng/mL (Cutoff: 5.0); Norbuprenorphine 311.8 ng/mL (Cutoff: 2.5)
== END 2020-08-10 17:25 | disposition home or self-care (01) ==
LOC: LBN 17:24
PROVIDERS: PCP Physician Assistant Medical; Visit Provider Advanced Practice Midwife
DX: O99.323 Drug use complicating pregnancy, third trimester (principal); F11.10 Opioid abuse, uncomplicated; Z36.85 Encounter for antenatal screening for Streptococcus B; Z3A.36 36 weeks gestation of pregnancy
CPT/HCPCS: 80307; 80360; 87081

== ENCOUNTER 2020-08-12 23:09 | Inpatient (IN) | payer MEDICAID, SELFPAY ==
[2020-08-12 23:19] VITALS: BP 113/72; PULSE 82
[2020-08-12 23:49] LABS: ROM Plus Positive
[2020-08-13] VITALS (128 sets, daily range): BP systolic 92–154; BP diastolic 53–85; PULSE 56–122; RESP 15–18; TEMP 36.4–36.9; O2SAT 94–100; BMI 22.6
[2020-08-13 01:34] LABS: HCT 41.6 % (36.0-46.0); HGB 13.9 g/dL (11.2-15.7); MCH 31.1 pg (27.0-33.0); MCHC 33.4 % (32.0-36.0); MCV 93.1 fL (80-95); MPV 10.6 fL (8.0-11.0); Platelet Count 207 10^3/uL (130-400); RBC 4.47 10^6/uL (3.93-5.22); RDW 12.9 % (11.7-14.6); RDW-SD 44.4 fL; WBC 11.96 10^3/uL (4.4-10.8)
[2020-08-13 01:34] LABS: Source Nasal/Nares
[2020-08-13 02:13] LABS: COVID-19 PCR Negative (Negative)
[2020-08-13] MEDS: CLINDAMYCIN 900 MG/50 ML BAG 50 MG IVPB (02:13)
[2020-08-13] MEDS: VANCOMYCIN 1,000 MG in Normal Saline 250 ML 166.6666 MG IVPB (02:49)
[2020-08-13] MEDS: Lactated Ringers 1,000 ML 200 ML IV ×2 (03:00→07:59)
[2020-08-13] MEDS: miSOPROStol 25 MCG TAB PO (03:00)
[2020-08-13] MEDS: FentaNYL/ROPIvacaine 2 mcg/ml and 0.1% 200 ML CADD Cassette EP (05:45)
--- NOTE | 2020-08-13 05:49 | W.ANESPRE ---
General Info Date of Service Date Performed: 08/13/20 Height: 5 ft 6 in Weight: 63.6 kg Body Mass Index (BMI): 22.6 Meds Allergies and Home Medications Allergies Allergy/AdvReac Type Severity Reaction Status Date / Time Penicillins Allergy Unknown as child Unverified 08/10/20 15:30 Sulfa (Sulfonamide Allergy Unknown Unverified 08/10/20 15:30 Antibiotics) sulfamethoxazole Allergy Hives Unverified 08/10/20 15:30 [From Bactrim] trimethoprim [From Bactrim] Allergy Hives Unverified 08/10/20 15:30 Home Medication Medication Instructions Recorded prenat.vits,thao,csq-wesy-uulfo 1 tab PO DAILY #90 tab 12/25/19 buprenorphine 2 mg-naloxone 0.5 mg 2 film BUCCAL DAILY 04/15/20 sublingual film pediatric multivit no.79-ferrous 2 tab PO DAILY #90 tab 05/31/20 fumarate 18 mg iron chewable tablet methylphenidate HCl 20 mg tablet 20 mg PO BID 07/12/20 ondansetron HCl 8 mg tablet 8 mg PO Q12H PRN #30 tab 07/12/20 Current Visit Medications: Current Medications Generic Name Dose Route Start Last Admin Trade Name Freq PRN Reason Stop Dose Admin Fentanyl/Ropivacaine 200 ml 08/13/20 05:45 Fentanyl/Ropivacaine 2 Mcg/Ml And 0.1% 200 Ml Cadd Cassette EP DIRECTED MARC Sodium Chloride 500 mls @ 0 mls/hr 08/13/20 00:52 Saline 500ml Bag IV PRN PRN As Directed Sodium Chloride 500 mls @ 0 mls/hr 08/13/20 01:01 Saline 500ml Bag IV PRN PRN As Directed Clindamycin Phosphate/Dextrose 900 mg in 50 mls @ 50 mls/hr 08/13/20 02:00 08/13/20 02:13 Cleocin In D5w IVPB 50 mls/hr Q8H MARC Administration Ringer's Solution 1,000 mls @ 200 mls/hr 08/13/20 03:00 IV INFUSION MARC Sodium Chloride 500 mls @ 0 mls/hr 08/13/20 02:54 Saline 500ml Bag IV PRN PRN As Directed Ringer's Solution 500 mls @ 500 mls/hr 08/13/20 05:35 IV 08/13/20 06:34 BOLUS ONE IV Miscellaneous Supplies 1 each 08/13/20 01:00 Iv Access IV DIRECTED [facility] IV Miscellaneous Supplies 1 each 08/13/20 01:15 Iv Access IV DIRECTED [facility] IV Miscellaneous Supplies 1 each 08/13/20 03:00 Iv Access IV DIRECTED [facility] Misoprostol 25 mcg 08/13/20 03:00 Misoprostol 25 Mcg Tab PO Q4H MARC Sodium Chloride 0 ml 08/13/20 00:52 Normal Saline Flush 10 Ml Syr IVP PRN PRN Sodium Chloride 0 ml 08/13/20 01:01 Normal Saline Flush 10 Ml Syr IVP PRN PRN Sodium Chloride 0 ml 08/13/20 02:54 Normal Saline Flush 10 Ml Syr IVP PRN PRN Terbutaline Sulfate 0.25 mg 08/13/20 02:54 Terbutaline 1 Mg/Ml Vial SC PRN PRN Zolpidem Tartrate 10 mg 08/13/20 21:00 Zolpidem 5 Mg Tab PO 08/14/20 06:00 2100 [facility] PFSH Active Problems Active Problems: Problem Status Onset Code Housing or economic circumstances Z59.9 Family history of thromboembolic disease Z82.49 Marijuana smoker F12.90 ADHD F90.9 Anxiety F41.9 Z34.90 Suboxone maintenance treatment complicating , antepartum O99.320, F11.20 Mastalgia N64.4 Medical History Medical History (Updated 07/29/20 @ 14:38 by Linda Hernandez) ADHD Discontinued ritalin 01/2020 Anxiety Family history of thromboembolic disease Mastalgia Placenta previa antepartum resolved at 29 weeks with tip >2 cm from OS Positive test Suboxone maintenance treatment complicating , antepartum 4 mg/day. [facility] since 04/2019. Tobacco Smoking/Tobacco Use Status: Current every day Tobacco Type: cigarettes Alcohol Alcohol Intake: former Details: stopped w/ knowledge of Substance Use Substance use: Daily Substance use type: marijuana Details: On Suboxone Prental History History 1 Para 0 Hx # Term Pregnancies 0 Multiple births 0 Hx # Pregnancies 0 Ectopic pregnancies 0 AB induced 0 Hx Number of Living Children 0 AB spontaneous 0 Vital Signs and Lab Results Vital Signs Most Recent Vital Signs in EMR: Most Recent Vital Signs Temp Pulse Resp BP 36.6 C 58 L 18 108/57 L 08/13/20 01:59 08/13/20 03:21 08/13/20 01:59 08/13/20 03:21 Lab Results Result Diagrams: 08/13/20 01:20 Blood Type / Crossmatch: Patient ABO/Rh O Negative 08/13/20 01:20 08/13/20 Antibody Screen Positive 08/13/20 01:20 08/13/20 Complete Blood Count: White Blood Count 11.96 10^3/uL (4.4-10.8) H 08/13/20 01:20 08/13/20 Red Blood Count 4.47 10^6/uL (3.93-5.22) 08/13/20 01:20 08/13/20 Hemoglobin 13.9 g/dL (11.2-15.7) 08/13/20 01:20 08/13/20 Hematocrit 41.6 % (36.0-46.0) 08/13/20 01:20 08/13/20 Platelet Count 207 10^3/uL (130-400) 08/13/20 01:20 08/13/20 Complete Metabolic Panel: No Data to Display Liver Function Panel: No Data to Display Coagulation Panel: No Data to Display Cardiac Panel: No Data to Display Arterial Blood Gas: No Data to Display Venous Blood Gas: No Data to Display Pancreas Panel: No Data to Display Thyroid Panel: Thyroid Stimulating Hormone (TSH) 1.00 uIU/mL (0.36-3.74) 02/05/20 15:17 02/05/20 Infectious Disease: Coronavirus (COVID-19)(PCR) Negative (Negative) 08/13/20 01:15 08/13/20 Coronavirus 2019 Source Nasal/nares 08/13/20 01:15 08/13/20 HIV (1&2) Ag and Ab, 4th Generation Negative (Negative) 02/05/20 15:17 02/05/20 Hepatitis B Surface Antigen Negative (Negative) 02/05/20 15:17 02/05/20 Hepatitis C Antibody Negative (Negative) 02/05/20 15:17 02/05/20 Neisseria gonorrhoeae DNA Probe Negative (Negative) 02/05/20 14:45 02/05/20 Blood Cultures: No Data to Display Toxicology Panel: Urine Amphetamines Screen Negative (Negative) 08/10/20 15:30 08/10/20 Urine Benzodiazepines Screen Negative (Negative) 08/10/20 15:30 08/10/20 Urine Barbiturates Screen Negative (Negative) 08/10/20 15:30 08/10/20 Urine Cocaine Screen Negative (Negative) 08/10/20 15:30 08/10/20 Urine Methadone Screen Negative (Negative) 08/10/20 15:30 08/10/20 Urine Opiates Screen Negative (Negative) 08/10/20 15:30 08/10/20 Ur Tricyclic Antidepressants Screen Negative (Negative) 08/10/20 15:30 08/10/20 Ur Tetrahydrocannabinol (THC) Scrn Positive (Negative) A 08/10/20 15:30 08/10/20 Panel: Beta HCG, Quantitative 889 mIU/mL (1-3) H 12/23/19 15:00 12/23/19 Anesthesia Assessment and Plan Anesthesia History Personal History: No History of General Anesthesia Family History: No Family History of Anesthesia Complications Exercise Tolerance Exercise Tolerance: Metabolic Equivalents>4 Pertinent Negatives Pertinent Negatives: No Symptoms of GERD, No Major Cardiovascular Symptoms or Complaints, No Major Pulmonary Symptoms or Complaints and No History of CVA/TIA Cardiac & Pulmonary Exam Cardiac Exam: Normal S1/S2 Heart Sounds Pulmonary Exam: Clear Bilateral Breath Sounds Airway Exam Known Difficult Airway: No Mallampati Class: 2 Mouth Opening: Normal (> 3cm) Thyromental Distance: Greater than 3 cm Neck Range of Motion: Full ROM Neck Circumference: Normal Teeth Condition: Normal Dentition ASA Classification ASA Score: ASA 2 Emergency Case?: No NPO Status NPO Status: NPO Clears >2 hours, Solids >8 hours Status Status: Per Patient Anesthesia Plan Anesthesia Technique: Epidural Anesthesia Airway Planned: Natural Airway Monitors Used: Standard Monitors Preoperative Comments:: Polysubtance use, anxiety, challenging history.
[2020-08-13] MEDS: Lactated Ringers 500 ML IV (06:38)
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
--- NOTE | 2020-08-13 06:41 | W.ANESNEU ---
Epidural/Spinal Catheter Date Performed: 08/13/20 Procedure Time: 06:32 Requesting Provider: Melita Harmon Procedure Location: Obstetrics Reason Performed: Labor Epidural Standard Monitors Applied: Blood Pressure and SpO2 Patient Position: Sitting Sedation Given (Indicate Dose Given): No Sedation given Patient Mental Status: Awake Sterility: Hand Hygiene, Surgical Cap, Surgical Mask, Sterile Gloves and Sterile Drape/Sheet Procedure Location: L2-L3 Interspace Epidural Needle: Tuohy 17 Guage Needle Length: 3.5 Inch Needle Approach: Midline Epidural Procedure: Skin Prepped, Sterile Drape Placed, 1% Lidocaine to skin and subcutaneous tissue with 25G needle, Tuohy Needle placed, Bone Contacted despite needle repositioning (at L3/L4 level, moved one level up), ISIS to Saline Used, Epidural Catheter Placed, Negative Heme and Negative CSF Flow Catheter Placed?: Catheter Placed Test Dose (Indicate Dose Given): 5ml 1.5% Lidocaine with 1:200K Epinephrine Given and Negative Test Dose Loss of Resistance Depth (cm): 7 Catheter depth at skin (cm): 14 Dressing: Sorbaview Dressing Placed, Mastisol Used and Dressing reinforced with Tape Epidural Provider Bolus (Indicate Dose Given): Total Ropivacaine 0.1% with Fentanyl 2mcg/ml Given from pump (ml) (8) Additives (Indicate Dose Given ): None Infusion Medication: New Infusion Medication Medication Infusion: Ropivacaine 0.1% with Fentanyl 2mcg/ml Maintenance Infusion Rate (ml/hour): 10 PCEA Bolus Dose (ml): 5 Post Procedure Pain score (0-10): 4 Block Level: T11 Paresthesia: None Ultrasound: Not Used Number of Attempts (See previous attempts in note section): 2 Procedure Tolerated: No Complications Procedure Outcome: Successful Performed By: Teetee Langley Supervised By: Earl Granda
--- NOTE | 2020-08-13 06:47 | PGE_ITS ---
Date of service: 08/13/20 Time of Service: 06:47 Informed Consent Informed Consent: Regional Anesthesia Pelvic Exam Dilation: 2 Effacement (%): 90 station: 0 Cervix Position: posterior Consistency: medium Vaginal Exam Presentation: Cephalic Pooling: Positive Contractions Monitor Mode: External Contraction Frequency(min): every 2-3 minutes Intensity: Moderate/Strong Fetus A Monitor: External (US) Heart Rate Baseline: 110 Presentation: Vertex Variability: Moderate (6-25 BPM) Categories: Category I FHR Rhythm: Regular Accelerations: 15 X 15 Decelerations: Variable Recurrence: Intermittent Amniotic Membrane Status: Ruptured Rupture Method: Spontaneous Amniotic Fluid: Clear Assessment Note: Low FHR baseline noted with variable decellertions down to 100 with contractions. Assessment and Plan Assessment and plan (1) membranes, rupture: Status: Acute (2) Prolonged rupture of membranes: Status: Acute Assessment and plan: Will encourage rest and continue to assess labor progress and heart rate tracing. Will consult with Dr. Willis who is in- house regarding Ricardoanaliaevon's status. UDS is pending at this time. Objective Abnormal lab results 08/13/20 Range/Units 01:20 WBC 11.96 H (4.4-10.8) 10^3/uL Temp Pulse Resp BP Pulse Ox 98 F 56 L 18 154/70 H 96 08/13/20 01:59 08/13/20 06:46 08/13/20 01:59 08/13/20 06:28 08/13/20 06:46 Laboratory Results WBC 11.96 10^3/uL (4.4-10.8) H 08/13/20 01:20 RBC 4.47 10^6/uL (3.93-5.22) 08/13/20 01:20 Hgb 13.9 g/dL (11.2-15.7) 08/13/20 01:20 Hct 41.6 % (36.0-46.0) 08/13/20 01:20 MCV 93.1 fL (80-95) 08/13/20 01:20 MCH 31.1 pg (27.0-33.0) 08/13/20 01:20 MCHC 33.4 % (32.0-36.0) 08/13/20 01:20 RDW 12.9 % (11.7-14.6) 08/13/20 01:20 Plt Count 207 10^3/uL (130-400) 08/13/20 01:20 MPV 10.6 fL (8.0-11.0) 08/13/20 01:20 Membranes Rupture Positive 08/12/20 23:25 COVID-19 Source Nasal/nares 08/13/20 01:15 SARS-CoV-2 (PCR) Negative (Negative) 08/13/20 01:15 Patient ABO/Rh O Negative 08/13/20 01:20 Antibody Screen Positive 08/13/20 01:20 Antibody Identification Anti-D 08/13/20 01:20 Subjective Patient Reports: New Complaints Interval history since last seen: Genia received one dose of misoprostol PO 25 mg. She slept for a while and awoke wth strong contractions and strong urge to have a bowel movement. She was unable to walk to the bathroom and had a BM on the commode at bedside. She received clindamycin IV for GBS prophylaxis. Do to the inavailability of GBS sensitivity results which are pending, I discussed antibiotic therapy with Dr. Willis who recommended administering vancomycin and that was give. Genia had a difficult time coping with contraction pain and was bearing down continuously. She used nitrous oxide briefly with only fair effect. She vomited several times. An epidural was placed by Earl romero with excellent effect and she is now sleeping. Results Hemoglobin/Hematocrit: Hgb 13.9 g/dL (11.2-15.7) 08/13/20 01:20 Hct 41.6 % (36.0-46.0) 08/13/20 01:20 Abnormal Lab Findings: Abnormal Labs 08/13/20 01:20 WBC 11.96 H
[2020-08-13] MEDS: Oxytocin/Normal Saline 30 UNIT/500 ML BAG 95 UNITS IV (11:25)
--- NOTE | 2020-08-13 12:00 | OBVDS_ITS ---
Date of service: 08/13/20 Time of Service: 12:01 OB Labor/ Delivery Information Baby A Delivery Delivery Method: Spontaneaous Presentation: Cephalic Cephalic Position: Vertex Vertex Position: Left Occipital Anterior Cord Description-Baby A: 3 Vessels Amniotic Fluid: Clear Estimated Blood Loss: 300 Delivery Outcome: Liveborn Transferred: Remains with Mother Note: Genia was examined at 0530 and was 2 cms dilated and experiencing severe discomfort. She slept well after receiving an epidural by bill Granda CRNA. She awoke and was examined and found to be fully dilated with vertex at +2. Straight cath for 250 cc clear urine. Genia was encouraged to begin pushing which she did well. FHTs 110 during first stage of labor. FHTs 105- 110 with variable decellerations to 90-100 with contractions in second stage. Second stage huddle was done. Spontaneous delivery of male infant delivered in TAYLA position. Baby was placed on mother's abdomen and dried and stimulated. Spontaneous cry. Cord was clamped and cut by the baby's father. The placenta delivered spontaneously and appears to by intact with a three vessel cord. The fundus was firm and she did not require any medications. The perineum was inspected and a first degree laceration and bilateral deon-urethral laceration was noted. The perineum was repaired with 3-0 vicryl suture and the right deon- urethral laceration extended through the right labia in a hole which was repaired under epidural analgesia. The baby did breastfeed. After delivery, Mother and baby and father of the baby were stable and bonding well in the delivery room and there were no complications. Providers Nurse Foamite Mixer: Melita Jennings Nurse: Jose G Sandoval Nurse: Nery Oneal Labor/Delivery Information Number of Babies in Womb: 1 Steroids Given: None Reason Steroids Not Administered: N/A Group Beta Strep: Positive Antibiotics Administered: Yes Number of Doses of Antibiotics: 2 Rubella Status: Immune Blood Type: O- Varicella Immunity: Immune Maternal Complications: None Shoulder Dystocia: No Stages of Labor Onset of Labor Date: 08/13/20 Onset of Labor Time: 00:00 Complete Dilatation Date: 08/13/20 Complete Dilatation Time: 10:25 Labor - Stage 1 Duration: 0 minutes ROM Baby A: 08/12/20 ROM Baby A: 22:00 ROM Total Time- Baby A: [id number] Infant Delivery Date-Baby A: 08/13/20 Infant Delivery Time-Baby A: 11:16 Labor Stage 2 Duration: 51 minutes Placenta Delivery Date-Baby A: 08/13/20 Placenta Delivery Time-Baby A: 11:21 Labor-Stage 3 Duration: 5 minutes Total Length of Labor-Baby A: 11 hours and 16 minutes Placenta Status: Delivered Baby A Gender: Male Gestational Status: Term (39-41.6 wks) Gestational Age in Weeks/Days: 40 Weeks and 0 Days Score-1 Minute Interval(Baby A) Heart Rate-1 minute: 100 BPM or Greater Respiratory Effort- 1 minute: Spontaneous/Strong Cry Muscle Tone-1 minute: Active Movement Reflex Response-1 minute: Prompt Response Color-1 minute: Bluish Hands or Feet Total Score-1 minute: 9 Score-5 Minute Interval(Baby A) Heart Rate- 5 minute: 100 BPM or Greater Respiratory Effort-5 minute: Spontaneous/Strong Cry Muscle Tone-5 minute: Active Movement Reflex Response-5 minute: Prompt Response Color-5 minute: Bluish Hands or Feet Total Score- 5 minute: 9 Procedure Procedures: Cervical Ripening Cervical Ripening: Misoprostol (x 1 dose)/ Cord Blood Collection (Section of cord for drugs of abuse) Interventions Repair of Laceration Type: Perineal and Periurethral , Laceration Extension: First Degree . Laceration Repair Note: first degree laceration and bilateral deon-urethral lacerations. The perineum was repaired with 3-0 vicryl suture and the right deon-urethral laceration extended through the right labia in a hole which was repaired under epidural analgesia
[2020-08-13] MEDS: Buprenorphine/Naloxone 8 mg/2 mg FILM 1 EACH SL (12:36)
--- NOTE | 2020-08-13 14:02 | W.ANESPOSTOP ---
Postoperative Evaluation Date, Time and Location Date Performed: 08/13/20 Time Performed: 14:42 Patient Location: Obstetrics Vital Signs Most Recent Imported Vital Signs: Most Recent Vital Signs Temp Pulse Resp BP Pulse Ox 36.5 C 71 16 125/72 100 08/13/20 13:56 08/13/20 13:55 08/13/20 13:56 08/13/20 13:55 08/13/20 12:39 Assessment Mental Status: Unable to Participate (Document Reason) (Patient sleeping, nursing staff requesting that patient not be disturbed, per report from RN, patient denied discomfort or nausea) Airway and Respiratory Function: Patent airway with normal (patient baseline) respiratory exam Cardiovascular Function: Hemodynamically Stable Hydration Status: Adequately Hydrated Nausea & Vomiting: No Nausea or Vomiting Pain: Pt. Denies Any Pain Peripheral Nerve Block: Patient did not receive a nerve block
[2020-08-13] MEDS: Normal Saline Flush 10 ML SYR IVP (14:21)
[2020-08-13] MEDS: Ondansetron 4 MG/2 ML VIAL IVP (14:21)
[2020-08-13 19:18] LABS: *AMPHETAMINES SCREEN URINE Negative (Negative); *BARBITURATES SCREEN URINE Negative (Negative); *BENZODIAZEPINES SCREEN URINE Negative (Negative); Cannabinoids THC Positive (Negative); Cocaine Screen,Urine Negative (Negative); METHADONE URINE SCREEN Negative (Negative); OPIATES URINE SCREEN Negative (Negative)
[2020-08-13 19:19] LABS: Tricyclic Antidepressants Negative (Negative)
[2020-08-13] MEDS: Ibuprofen 600 MG TAB PO (20:21)
[2020-08-14] MEDS: Acetaminophen 325 MG TAB 650 MG PO ×2 (00:20→08:07)
[2020-08-14 05:50] VITALS: BP 107/62; PULSE 61; RESP 15; TEMP 36.8; O2SAT 99
[2020-08-14 06:40] LABS: HCT 36.9 % (36.0-46.0); HGB 12.2 g/dL (11.2-15.7); MCH 30.6 pg (27.0-33.0); MCHC 33.1 % (32.0-36.0); MCV 92.5 fL (80-95); MPV 10.7 fL (8.0-11.0); Platelet Count 185 10^3/uL (130-400); RBC 3.99 10^6/uL (3.93-5.22); RDW 13.1 % (11.7-14.6); RDW-SD 44.5 fL; WBC 13.59 10^3/uL (4.4-10.8)
[2020-08-14] MEDS: Ibuprofen 600 MG TAB PO (08:06)
[2020-08-14] MEDS: Buprenorphine/Naloxone 8 mg/2 mg FILM 1 EACH SL (08:07)
[2020-08-14 10:30] VITALS: BP 118/79; PULSE 86; RESP 16; TEMP 36.7; O2SAT 98
--- NOTE | 2020-08-14 11:34 | W.PM.OBPNV1 ---
Date of service: 08/14/20 Time of Service: 11:34 Assessment and Plan Assessment and plan (1) Term delivered: Status: Acute Assessment and plan: A: PPD#1 Normal recovery from ESC observation period in effect Pt desires early discharge to be able to leave hospital for errands off to a good start RhoGam indicated and will be given prior to discharge P: Discharge to Boarder status per pt request this afternoon Peds has noted open DCF case and intake number Will proceed with Nexplanon insertion today Plan & ESC support via Nursing Written instructions reviewed and given to pt F/up at 2 & 6 wks (2) Suboxone maintenance treatment complicating , antepartum: Status: Acute (3) Nexplanon insertion: Status: Acute Subjective Subjective Patient comments: No complaints, Pain well controlled, Tolerating diet and Flatus present Patient's Mood: energetic, happy baby status: Doing well, Nursing well, Supplemental feeding going well (minimal supplementation thus far.), Rooming in and Strong Bonding Observed [place] feeding status: Exclusively breast feeding Narrative: Baby on the ESC observation program Exam Physical Exam Vital signs: Temp Pulse Resp BP Pulse Ox 98.1 F 86 16 118/79 98 08/14/20 10:30 08/14/20 10:30 08/14/20 10:30 08/14/20 10:30 08/14/20 10:30 Vital Signs Reviewed: Yes Constitutional Constitutional: no acute distress HEENT Exam HEENT Exam: Normal Neck Exam Neck Exam: Normal Respiratory Exam Respiratory Exam: Normal Cardiovascular Exam Cardiovascular Exam: Normal Abdominal Exam Abdomen: Other (soft, nontender) Fundal Exam Fundus: Below Umbilicus and Firm Rectal Exam Rectal Exam: Normal Exam Perineum: Normal and Repair Intact Extremities Exam Extremity Exam: Normal, Full ROM, Pulses Intact, Normal Capillary Refill and Warm to Touch Back/Spine/Pelvis Exam Back Exam: Normal Skin Exam Skin Exam: Normal Neurological Exam Neurological Exam: Normal Psychiatric Exam Psychiatric Exam: Normal (bonding behavior with baby observed) DetailedPsychiatric Exam Psych Exam: Cooperative and Anxious Results Hemoglobin/Hematocrit: Hgb 12.2 g/dL (11.2-15.7) 08/14/20 06:25 Hct 36.9 % (36.0-46.0) 08/14/20 06:25 Abnormal Lab Findings: Abnormal Labs 0508/13/20 08/14/20 01:20 18:44 06:25 WBC 11.96 H 13.59 H Ur THC Screen Positive A Procedure Procedures: Insertion of Contraceptive Device , Subdermal Implant (Nexplanon) Contraceptive Placement: Upper Left Arm
--- NOTE | 2020-08-14 11:44 | DSE_ITS ---
Date of service: 08/14/20 Time of Service: 11:44 DS: Diagnosis Discharge Diagnosis (1) Term delivered: Status: Acute (2) Suboxone maintenance treatment complicating , antepartum: Status: Acute (3) Nexplanon insertion: Status: Acute Discharge Plan Disposition Patient Disposition: HOME Condition: Good Discharge Details Reason For Visit: SPONTANEOUS RUPTURE OF MEMBRANES Admit Date/Time: 08/13/20 00:52 Admit Provider: Melita Jennings Attending Provider: Melita Jennings Primary Care Provider: Love Golden Hospital Course Hospital Course: Admitted from [facility], spontaneous labor onset, epidural, and , nml course. Pt desires discharge to Boarder status at 24 hours PP. Home Meds and New Rx's Prescriptions: No Action prenat.vits,thao,[id number] Tablet 1 tab PO DAILY Qty: 90 RF: 5 Flintstones with Iron 18 mg iron tablet,chewable 2 tab PO DAILY Qty: 90 RF: 6 buprenorphine-naloxone [Suboxone] 8-2 mg Film 1 film SUBLINGUAL DAILY RF: 0 Discharge Instructions Additional Instructions: Please keep a 2 week and a 6 week appointment with your midwives. Call for any concern or question. Stand Alone Forms: BC Instructions, NB Circumcision Care Inst., NB [place] Instructions, BC Post Vaginal Deliver Activity:: Activity as Tolerated Equipment/Supplies:: No Equipment Needed Diet:: Normal Diet Discharge Orders Discharge Orders: Discharge Order (Routine); Ordered 08/14/20 Ordered By: Grace Douglas Procedure Procedures: Insertion of Contraceptive Device , Subdermal Implant Contraceptive Placement: Upper Left Arm OB:DS Summary Summary Vaginal Delivery Method: Spontaneaous Episiotomy Description: None Laceration Description: Perineal and Periurethral Laceration Extension: First Degree Contraception Discussed Contraception Discussed: Yes Contraceptive Plan: Levonorgestrel Implant, Infant Gender-Baby A: Male weight: 5 lb 13.829 oz Status at Discharge Functional status at discharge: independent ambulation Overall status at discharge: patient is progressing back to baseline Mental Status: mental status grossly normal Speech and Movement: speech and movement normal and speech clear Mood: congruent mood Affect: anxious affect Exam Physical Exam Vital signs: Temp Pulse Resp BP Pulse Ox 98.1 F 86 16 118/79 98 08/14/20 10:30 08/14/20 10:30 08/14/20 10:30 08/14/20 10:30 08/14/20 10:30 Constitutional Constitutional: no acute distress HEENT Exam HEENT Exam: Normal Neck Exam Neck Exam: Normal Respiratory Exam Respiratory Exam: Normal Cardiovascular Exam Cardiovascular Exam: Normal Abdominal Exam Abdomen: Other (soft, nontender) Fundal Exam Fundus: Below Umbilicus and Firm Rectal Exam Rectal Exam: Normal Exam Perineum: Normal and Repair Intact Extremities Exam Extremity Exam: Normal, Full ROM, Pulses Intact, Normal Capillary Refill and Warm to Touch Back/Spine/Pelvis Exam Back Exam: Normal Skin Exam Skin Exam: Normal Neurological Exam Neurological Exam: Normal Psychiatric Exam Psychiatric Exam: Normal (bonding behavior with baby observed) [facility] Medical History (Updated 08/14/20 @ 11:44 by Grace Douglas) ADHD Discontinued ritalin 01/2020 Anxiety Family history of thromboembolic disease membranes, rupture Group B 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 [facility] 04/[facility]. Family History (Updated 02/05/20 @ 13:26 by Alen Whiting CNM) Father Lung cancer COPD (chronic obstructive pulmonary disease) Alcohol abuse Social History (Updated 02/05/20 @ 13:33 by Alen Whiting CNM) Smoking/Tobacco Use Status: Current every day Tobacco Type: cigarettes Smoking risk assessment performed?: Yes Alcohol Intake: former Details: stopped w/ knowledge of Drug use: Daily Substance use type: marijuana Details: On Suboxone Household members: significant other and other Details: Rudolph Number of Children: 0 Do you feel safe at home: Yes Do you feel safe in your relationship?: Yes History History 1 Para 0 Hx # Term Pregnancies 0 Multiple births 0 Hx # Pregnancies 0 Ectopic pregnancies 0 AB induced 0 Hx Number of Living Children 0 AB spontaneous 0 DS: Data Vitals/I&O Vitals and I&O: Vital Signs Temperature 98.1 F 08/14/20 10:30 Temperature Source Oral 08/13/20 11:51 Pulse 86 08/14/20 10:30 Pulse Rhythm Regular 08/14/20 10:30 Respiratory Rate 16 08/14/20 10:30 Blood Pressure 118/79 08/14/20 10:30 Blood Pressure Mean 92 08/14/20 10:30 Pulse Oximetry 98 08/14/20 10:30 Oxygen Delivery Method Room Air 08/13/20 11:51 Oxygen Flow Rate 0 08/13/20 11:51 Pain Level 5 08/14/20 08:07 Intake & Output 08/13/20 08/13/20 08/14/20 11:59 23:59 11:59 Intake Total 1236.667 / 2436.667 1200 / 2436.667 1750 / 1750 Output Total 700 / 1200 500 / 1200 800 / 800 Balance 536.667 / 1236.667 700 / 1236.667 950 / 950 Weight 140 lb 3.424 oz Intake: IV 996.667 / 1696.667 700 / 9722.733 4008 / 1250 Oral 240 / 740 500 / 740 500 / 500 Output: Urine 225 / 725 500 / 725 800 / 800 Emesis 475 / 475 Other: Urine Color Yellow Yellow Urine Appearance Clear Clear Urine Odor None Comment st cath Voiding Methods Toilet Data Completed and Pending Labs on day of discharge: Labs from last 24 hours 08/14/20 08/14/20 08/13/20 06:25 06:25 18:44 WBC 13.59 H RBC 3.99 Hgb 12.2 Hct 36.9 MCV 92.5 MCH 30.6 MCHC 33.1 RDW 13.1 Plt Count 185 MPV 10.7 Urine Opiates Screen Negative Urine Methadone Screen Negative Ur Barbiturates Screen Negative Ur Tricyclics Screen Negative Ur Amphetamines Screen Negative U Benzodiazepines Scrn Negative Urine Cocaine Screen Negative Ur THC Screen Positive A Screen Pending Unit Expiration Date Product Lot # 08/13/20 01:20 WBC RBC Hgb Hct MCV MCH MCHC RDW Plt Count MPV Urine Opiates Screen Urine Methadone Screen Ur Barbiturates Screen Ur Tricyclics Screen Ur Amphetamines Screen U Benzodiazepines Scrn Urine Cocaine Screen Ur THC Screen Screen Unit Expiration Date 08/22/21 Product Lot # [id number]
== END 2020-08-14 12:10 | disposition home or self-care (01) | DRG 806 ==
PROVIDERS: Admitting Provider Advanced Practice Midwife; PCP Physician Assistant Medical; Visit Provider Advanced Practice Midwife
DX: O99.824 Streptococcus B carrier state complicating childbirth (principal); F11.20 Opioid dependence, uncomplicated; Z37.0 Single live birth; O99.324 Drug use complicating childbirth; O70.0 First degree perineal laceration during delivery; O71.82 Other specified trauma to perineum and vulva; O99.344 Other mental disorders complicating childbirth; F90.9 Attention-deficit hyperactivity disorder, unspecified type; F41.9 Anxiety disorder, unspecified; O99.334 Smoking (tobacco) complicating childbirth; F17.210 Nicotine dependence, cigarettes, uncomplicated; Z3A.37 37 weeks gestation of pregnancy; Z20.822 Contact with and (suspected) exposure to COVID-19
CPT/HCPCS: 36415; 80307; 84112; 85027; 85461; 86850; 86900; 86901; 87635; 90384; 86870; J1050; J2405; J2790; J3490

== ENCOUNTER 2020-08-14 14:13 | Outpatient (CLI) | payer MEDICAID, SELFPAY | END 2020-08-14 14:14 | disposition home or self-care (01) | LOC: BCD 14:17 | PROVIDERS: PCP Physician Assistant Medical; Visit Provider Advanced Practice Midwife | DX: R69 Illness, unspecified (principal) | CPT/HCPCS: J1050 ==